=== PATIENT | female | born 1980 | race Caucasian/White ===

== ENCOUNTER 2025-08-03 14:29 | Outpatient (AMB) | payer OTHER, SELFPAY ==
--- NOTE | 2025-08-03 14:34 | A.OFFVIS_ITS ---
Vital Signs 08/03/25 14:43 Height 5 ft Weight 119 lb 0.794 oz BMI 23.2 BP 122/68 Blood Pressure Location Rt brachial Position Sitting Pulse 70 Pulse Source Pulse Oximeter Pulse Oximetry (%) 99 Oxygen Delivery Method Room Air Intake Visit Reasons: Vomiting, abdominal pain, watery diarrhea Intake Note: Patient new consult for Vomiting, abdominal pain, watery diarrhea Patient cc: C.O. intermittent episodes of severe N+V, generalized abd pain over the last 6-8 months. Pt reports that she has been on GLP 1 therapy for over 1 year and had previously been doing well with the Trulicity after starting with Mounjaro. Pt also reports having concerns pertaining to a possible rash/skin irritation in the navel area w/ reported purulent discharge. Discharge also has a foul odor. Filling Machine Set Up Mechanic Required: No Accompanied by: Spouse Allergies metformin Allergy (Intermediate, Verified 07/24/25 14:19) Abdominal Pain niacinamide Allergy (Intermediate, Verified 07/24/25 14:19) rash sucralfate (From Carafate) Allergy (Intermediate, Verified 07/24/25 14:19) Itching gelatin Allergy (Mild, Verified 07/24/25 14:19) Unknown prednisone Allergy (Verified 07/24/25 14:19) Wheezing dasen Allergy (Intermediate, Uncoded 07/24/25 14:19) Dizziness HPI HPI Vomiting, abdominal pain, watery diarrhea: Details: Patient is a 45-year-old female with PMH of []. Referred by PCP for further evaluation of abdominal pain and diarrhea. Patient is accompanied by . Patient presents with persistent, recurrent abdominal pain localized primarily to the epigastric region with radiation to the back, ongoing for years but significantly worsened since starting Trulicity injections in January of this year. Pain is described as severe, sometimes sharp/cramping, and is temporally associated with weekly injections, beginning after administration and lasting several days. The patient rates pain intensity as severe and expresses distress over the inability to achieve relief. Associated gastrointestinal symptoms include intermittent hard stools (?rabbit- like?), irregular bowel movement frequency (not daily, sometimes every few days), occasional urge without evacuation, and rare episodes of diarrhea when using a laxative. Reports occasional blood noted in stool in the past, but unclear if ongoing; denies dark/tarry stool, but had some history of foul- smelling, itchy perianal discharge occurring concurrently with pain. Nausea occurs intermittently; no vomiting. Reports subjective fevers, malaise, and weakness after pain episodes, but no objective temperature measurement. Bowel pattern appears changed/worsened since medication switch from metformin/Manjaro to Trulicity. Currently takes Tylenol for pain (partial relief). Patient is reluctant to trial regular use of prescribed osmotic laxatives (Miralax) due to previous intolerance (diarrhea when used daily), but open to trying every other day dosing if indicated. Previously evaluated in the ED 2?3 months ago for severe abdominal pain, diagnosed with colitis, CT negative for obstruction or small bowel wall thickening. Undergoing evaluation for possible allergic/immune issues (allergen testing reported, C1 inhibitor elevated, but pending specialist follow-up). No history of gallbladder removal. Notable comorbidities include diabetes mellitus managed with GLP-1 agonists. Prior medication changes due to suboptimal glycemic control and side effects. Patient expresses high concern about pain management and impact on daily routine and emotional well-being. Patient denies: vomiting, appetite changes, pyrosis, regurgitation,dysphasia, unintentional wt loss. Social hx: -denies ETOH use -denies recreational drug use -non-smoker - family hx as below -denies personal hx of CA -denies significant cardiopulmonary history -tolerated anesthesia in the past without difficulty. [facility], LAT[facility] Medical History (Updated 08/04/25 @ 09:27 by Patti Busby CNP) Umbilical abnormality Diabetes Constipation Abdominal pain Surgical History History of esophagogastroduodenoscopy History of colonoscopy Family History Paternal Grandmother Heart disease Father Diabetes mellitus Brother Diabetes mellitus Mother Diabetes mellitus Paternal Aunt Diabetes mellitus Social History Household Members: Family Review of Systems Const Reports as per HPI ENT Reports as per HPI Card Reports as per HPI Resp Reports as per HPI GI Reports as per HPI Reports as per HPI Physical Exam Vital Signs: Last Vital Signs Pulse 70 08/03/25 14:43 BP 122/68 08/03/25 14:43 Pulse Ox 99 08/03/25 14:43 Oxygen Delivery Method Room Air 08/03/25 14:43 BMI result Body Mass Index 23.2 Const General: healthy appearing, no acute distress and well developed Nutritional Appearance: average body habitus Orientation/consciousness: patient oriented x3 HEENT Head: Yes normal to inspection, Yes normocephalic and Yes atraumatic Face and sinus: Yes normal facial exam Eyes General: appearance normal, both eyes and all related structures Neck Neck: Yes normal visual inspection Resp Effort & Inspection: normal respiratory effort, able to speak in complete sentences, no tracheal deviation and symmetric chest movement Cardio Jugular venous distension: no JVD GI Other: No evidence of discharge to umbilicus Inspection: Yes normal to inspection, No distended and Yes obesity Palpation (GI): Soft to palpation, not firm, Tenderness to palpation present (GI) in the epigastrum and No hepatosplenomegaly present Auscultation: normal bowel sounds Neuro General: patient oriented x3 Gait exam (Neuro): Normal gait present Psych Appearance: grossly normal Mental Status: mental status grossly normal Speech and movement: Normal speech and movement present Affect: normal affect Attitude: cooperative Thought process: Normal thought process present Thought content: Normal thought content present Insight: Good insight present (Psych) Judgement: Good judgement present (Psych) Assessment & Plan Assessment & Plan (1) Abdominal pain: Code(s): R10.9 - Unspecified abdominal pain Category: Medical Qualifiers: Abdominal location: epigastric Qualified Code(s): R10.13 - Epigastric pain Plan: Prior ED dx, intermittent abdominal pain, history of antibiotics for presumed infection, but no current evidence for active inflammation or infection. DDX: Colitis (infectious, allergic, or inflammatory) VS Gallbladder or pancreatobiliary etiology (less likely, but RUQ/epigastric pain with radiation considered) VS Colorectal neoplasm (less likely; no family history, no weight loss, no ongoing hematochezia) VS IBS VS allergy-mediated GI disturbance Additional Testing: - Abdominal CT A/P?re-evaluation or evidence of other etiology. Medication Management: Pepcid 20 mg b.i.d. Lifestyle Recommendations: As above. Follow-Up: Await imaging and labs; reassess if change in symptoms, especially bleeding or systemic toxicity. (2) Constipation: Code(s): K59.00 - Constipation, unspecified Category: Medical Qualifiers: Constipation type: drug induced constipation Qualified Code(s): K59.03 - Drug induced constipation Plan: Temporal correlation with Trulicity, symptom onset and exacerbation post- injection, known GLP-1 class effects, hard/irregular stools, improvement with intermittent laxative use. Additional Testing: - Abdominal X-ray?rule out significant stool burden/obstruction. - Labs: Repeat CBC/CMP, focus on anemia, inflammation if indicated (after fasting). Medication Management: - Recommend osmotic laxative (Miralax every other day if stool retention confirmed; avoid daily use if prior diarrhea). - Trial of Pepcid (famotidine) for epigastric discomfort, up to BID; consider Bentyl (dicyclomine) for cramping if not responsive. - Continue Tylenol prn for pain. Lifestyle Recommendations: - Increase dietary fiber and fluids as tolerated. - Monitor for red flag symptoms: persistent blood in stool, fevers, weight loss. Follow-Up: - Review X-ray results same day. - Contact with results, reassess after imaging. - Consider earlier GI follow-up if symptoms worsen or red flags emerge. Order (3) Diabetes: Code(s): E11.9 - Type 2 diabetes mellitus without complications Category: Medical Qualifiers: Diabetes mellitus type: type 2 Diabetes mellitus regional coordinator insulin use: without care home use Diabetes mellitus complication status: with hyper glycemia Qualified Code(s): E11.65 - Type 2 diabetes mellitus with hyperglycemia Plan: Medication changes due to side effects; patient still experiencing hyperglycemia. Additional Testing: Routine labs for glycemic control (A1c), fasting labs Per PCP Medication Management: Continue current regimen; refer to or coordinate with PCP/endocrinology re: alternative antihyperglycemic agents if intolerable GI side effects persist. Lifestyle Recommendations: Dietary management per diabetic guidelines. Follow-Up: Per PCP/endocrinology. 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 Additional Testing: None indicated at this time; reassess with GI symptom management. Medication Management: Supportive care (hygiene); consider topical if persists. Lifestyle Recommendations: Keep area clean/dry; avoid irritants. Follow-Up: With GI symptom improvement. Plan Follow-up after results or sooner as needed Time: I spent a total of 45 minutes on the date of encounter which includes: Preparing to see the patient (reviewed previous documentation, test results and medical history) Performing a medically appropriate exam and/or evaluation Ordering medications, tests, and procedures Documenting clinical information in the health record Orders: Orders Comprehensive [place]. Panel Fast 08/03/25 R10.9 - Unspecified abdominal pain CT abdomen pelvis w IV con 08/03/25 R10.9 - Unspecified abdominal pain XR KUB 08/03/25 R10.9 - Unspecified abdominal pain Complete Blood Count Auto Diff Today R10.13 - Epigastric pain Medications: New famotidine Take one tablet twice daily 20 mg PO BID 180 tabs 0RF GERD Coding Level of Care Code New Pt New Pt Level 4 (46756) Patient Type New Diagnoses Epigastric pain R10.13 Abdominal location: epigastric Drug-induced constipation K59.03 Constipation type: drug induced constipation Type 2 diabetes mellitus with hyperglycemia, without long-term current use of insulin E11.65 Diabetes mellitus type: type 2 Diabetes mellitus regional coordinator insulin use: without care home use Diabetes mellitus complication status: with hyperglycemia Umbilical abnormality Q89.9
[2025-08-03 14:43] VITALS: BP 122/68; PULSE 70; O2SAT 99; BMI 23.2
--- OUTSIDE RECORDS SUMMARY | 2025-08-03 17:36 | XMS_ITS | Clinical Summary ---
Author Organization [facility] Address [address] [place] [address] Phone Care Team Providers Care Pouako Kura [place] Maori Name Role Phone Argentina Emerson Primary Care Provider [phone] Allergies Active Allergy Reactions Criticality Noted Date Comments Gelatin 03/17/2025 Niacinamide Rash Low 08/07/2023 Sucralfate Hives,Rash Low 02/16/2017 Medications cholecalciferol (VITAMIN D3) 2,000 unit tablet TAKE 1 TABLET BY MOUTH EVERY DAY *NOT COVERED* 07/01/2023 Active glyBURIDE (DIABETA) 2.5 MG tablet TAKE 1 TABLET BY MOUTH EVERY DAY WITH MEALS FOR 30 DAYS 07/14/2023 Active VITAMIN 27 mg iron- 0.8 mg Take 1 tablet by mouth every morning. 07/06/2023 Active Active Problems No known active problems Immunizations Immunization Administration Dates Next Due Tdap 11/22/2012 Family History Medical History Relation Comments Diabetes mellitus Father 2 Diabetes mellitus Paternal Grandmother 2 Relation Status Comments Father 1 Father 2 Paternal Grandmother 1 Paternal Grandmother 2 Social History Tobacco Use Types Packs/Day Years Used Date Smoking Tobacco: Never Smokeless Tobacco: Never Tobacco Cessation:Counseling Given: Not Answered Education Answer Date Recorded Are you interested in more education? Not on linda e 01/30/2023 Are you concerned about learning? Not on file 01/30/2023 No 01/30/2023 No 01/30/2023 Digital Access Answer Date Recorded No 02/27/2023 No 02/27/2023 Reliable internet access at home? Not on file 02/27/2023 Device with a working camera? Not on file Intimate Partner Violence Answer Date R ecorded Are you denied basic needs s uch as food, clothing, or medical care? No 03/17/2025 In the past 12 months have y ou been in a relationship with a person who hurts, threatens, or tries to control you? No 03/17/2025 Are you denied basic needs s uch as food, clothing, or medical care? No 03/17/2025 In the past 12 months have y ou been in a relationship with a person who hurts, threatens, or tries to control you? No 03/17/2025 Comments Unknown Sex and Gender Information Value Date Recorded Sex Assigned at Female 10/12/2017 9:38 AM EST Legal Sex Female 9:21 PM EDT Gender Identity Female 10/12/2017 9:38 AM EST Sexual Orientation Straight 10/12/2017 9: 38 AM EST Last Filed Vital Signs Vital Sign Reading Time Taken Comments Blood Pressure 114/75 03/17/2025 6:21 PM EDT Pulse 80 03/17/2025 6:21 PM EDT Temperature 36.3 C (97.3 F) 03/17/2025 6:21 PM EDT Respiratory Rate 16 03/17/2025 6:21 PM EDT Oxygen Saturation 99% 03/17/2025 6:21 PM EDT Inhaled Oxygen Concentration - - Weight 62.6 kg (138 lb) 03/17/2025 1:40 PM EDT Height 154.9 cm (5' 1 ) 03/17/2025 1:40 PM EDT Body Mass Index 26.07 03/17/2025 1:40 PM EDT Plan of Treatment Health Maintenance Due Date Last Done Comments DEPRESSION SCREENING 1993 HIV ONE-TIME SCREENING (18-6 5 YEARS) 1999 MAMMOGRAM 2021 PAP SMEAR 02/23/2024 02/22/2021 INFLUENZA VACCINE (#1) 2025 9, 07/27/2018, 11/22/2012 COVID-19 VACCINE (2 6 season) 2025 04/09/2021, 03/13/2021 SCREENING FOR DIABETES 03/17/2028 03/17/2025 Adult Td,Tdap Booster 04/08/2033 04/08/2023 , 11/22/2012 PNEUMOCOCCAL VACCINES (0-49 years) Aged Out 07/27/2018 No longer eligible b ased on patient's age to complete this topic HEPATITIS C SCREENING Completed 11/02/2019 SMOKING STATUS SCREENING (On ce After 26 Yrs) Completed 08/07/2023 HEPATITIS A VACCINES Aged Out No long er eligible based on patient's age to complete this topic HIB VACCINES Aged Out No longer eligi ble based on patient's age to complete this topic MENINGOCOCCAL VACCINES (ACWY) Aged Out No longer eligible based on patient's age to complete this topic MENINGOCOCCAL VACCINES (B) Aged Out N o longer eligible based on patient's age to complete this topic Medical Devices Not on file Procedures Procedure Name Priority Date/Time Associated Diagnosis Comments PAP TEST Routine 02/22/2021 12:00 AM EDT from Last 3 Months or Most Recently Relevant to Health Maintenance Results * Pap Smear (02/22/2021 12:00 AM EDT) 02/22/2021 02/25/2021 8:5 5 AM EDT Narrative SEE NARRATIVE - 03/01/2021 1:12 [place] [address] Lead Generation Marketing Manager: Idalmis Carlisle MD EXPANDING MACHINE OPERATOR Cytology Report FINAL DIAGNOSIS A. PAP SMEAR (SUREPATH) CE: SPECIMEN ADEQUACY: Satisfactory for evaluation; transformation zone present. INTERPRETATION: NEGATIVE FOR INTRAEPITHELIAL LESION OR MALIGNANCY. Electronically Signed Out By: IDALMIS Gaines(ASCP) The Pap test is a screening test primarily for squamous cancers and precursors and has associated false-negative and false-positive results. New technologies such as liquid-based preparations may decrease but will not eliminate all false-negative results. Regular sampling and follow-up of unexplained clinical signs and symptoms are recommended to minimize false negative results. PROCEDURES/ADDENDA HPV Testing (Requested) Ordered Date: 02/25/2021 A. PAP SMEAR (SUREPATH) CE: Human Papilloma Virus Test Negative for high-risk human papillomavirus types 16, 18, 45 and the Other high risk probe set (Includes 31, 33, 35, 39, 51, 52, 56, 58, 59, 66, 68) by [employer] HR-HPV analysis. Clinical correlation is advised. This HPV test was performed at [facility], [address] [place] [address]. This test has been FDA approved for SurePath cervical cytology specimens. The accuracy and precision of this test for all other specimen sources has been verified in the Cytopathology Laboratory of the [facility] and has not been cleared or approved by the U.S. Food and Drug Administration. Clinical correlation is advised. CLINICAL HISTORY Date of Last Menstrual Period: 02-04-2021 Other Clinical Conditions: Screening Pap SPECIMEN SOURCE A: PAP SMEAR (SUREPATH) CE Patient Name: POOL MCFARLAND : 1980 (Age: 40) Sex: F Institution: [facility] Location: [facility] Date of Collection: 02/22/2021 Date of Reported: 03/01/2021 13:12 Results to: Trini Lino Trini Lino PA CYTOLOGY ORDERABLE S Final Result SEE NARRATIVE from Last 3 Months or Most Recently Relevant to Health Maintenance [place] [id number] [place] [id number] Care Teams P[place] K[place] Maori Relationship Specialty Start Date End Date Argentina Emerson PA [address] [place] [id number] PCP - General Physician Provider Service Representative 03/11/23 Additional Source Comments The information contained in this document represents components of the legal health record. It is not the complete legal health record.[facility]
--- OUTSIDE RECORDS SUMMARY | 2025-08-03 17:36 | XMS_ITS | Encounter Summary ---
Author Organization [facility] Address [address] [place] [address] Phone Care Team Providers Care Fire Engineer Name Role Phone Trini Lino Primary Care Prov ider Argentina Emerson Primary Care Provider [phone] Reason for Referral * Outpatient Procedure - Closed Specialty Diagnoses / Procedures Referred By Alphonso milian Referred To Contact Diagnoses Other chest pain Procedures Adult Echo TTE Trini Lino PA Phone: tel: fax: mailto:chelly Referral ID Status Reason Start Date Expiration Date Visits Re quested Visits Authorized [id number] Closed 02/22/2019 03/23/2019 1 1 Encounter Details Date Type Department Care Team (Late st Contact Info) Description 01/27/2019 Transcribe Orders Virtual Department [address] [place] [address] Trini Lino PA [address] [place] [address] sarina Other chest pain (Primary Dx) Social History Tobacco Use Types Packs/Day Years Used Date Smoking Tobacco: Never Smokeless Tobacco: Never Comments Unknown Sex and Gender Information Value Date Recorded Sex Assigned at Female 10/12/2017 9:38 AM EST Legal Sex Female 9:21 PM EDT Gender Identity Female 10/12/2017 9:38 AM EST Sexual Orientation Straight 10/12/2017 9: 38 AM EST documented as of this encounter Plan of Treatment Not on file documented as of this encounter Results * TTE COMPREHENSIVE (03/02/2019 11:07 AM EDT) Body Surface Area 1.6 m2 Height 152 cm Weight 65 kg Systolic BP 112 mmHg Diastolic BP 74 mmHg Left Atrium Dimension Anterior-Posterior 27 15 - 40 mm Aortic Valve Peak Velocity 110.0 cm/s Aortic Valve Peak Gradient 5 mmHg Aortic Sinus Diameter 23 mm Ascending Aorta Diameter 23 mm Interventricular Septum Thickness 6 mm Left Ventricle Internal Diameter End Diastole 43 37 - 52 mm Left Ventricle Internal Diameter End Systole 29 22 - 35 mm Left Ventricular Outflow Tract Diameter 19.0 mm LVOT VTI REST 226 mm Left Ventricular Outflow Tract Velocity 0.8 m/s Left Ventricular Outflow Tract Gradient at Rest 2 mmHg Left Ventricular Posterior Wall Thickness 9 mm Ejection Fraction 60 50 - 75 Percent Mitral Valve Deceleration Time 232 ms Mitral Valve A Wave Speed 54.3 cm/s Mitral Valve E Wave Speed 103.0 cm/s Right Ventricle Basal Diameter 22.7 25 - 41 mm Raw LV EF% 55 % Left Atrial Volume 38 mL Left Atrial Volume Index 23.75 mL/m2 Aortic Valve Sinus Index 1 14 19 - 27 mm Ascending Aorta Diameter 14 mm Aortic Sinus Index 14 mm Ascending Aorta Index 14 mm Anatomical Region Laterality Modality Heart Ultrasound Narrative 03/02/2019 1:58 PM EDT Normal LV size and function EF 60%. Normal diastolic function. Normal valve structure and function with trace mitral regurgitation. Normal study. Left Ventricle The left ventricular cavity size and wall thickness are normal. Left ventricular systolic function is normal. There are no segmental left ventricular wall motion abnormalities noted. The estimated ejection fraction is 60% (Normal 50-75%). The left ventricular ejection fraction was measured by visual estimate. Left ventricular diastolic function appears within normal limits for age. There is no evidence of left ventricular thrombus. Right Ventricle The right ventricular size is normal. No evidence of right ventricular hypertrophy. The right ventricular systolic function is normal. Left Atrium The left atrium is normal in size. The left atrial anterior-posterior dimension measures 27 mm (normal 15-40 mm). The LA volume is 38 mL. The LA volume index is 23.75 mL/m2 (normal indexed value is 16-34 mL/m2). The pulmonary venous flow profiles are normal. Pulmonary vein connections were not well seen. Right Atrium The right atrium is normal in size. Mitral Valve The mitral valve appears normal. The E/A ratio is 1.9. The Med E' Yasmani is 12 cm/s and the Lat E' Yasmani is 17.6. The E/E' AVG is 7.0. There is no evidence of mitral stenosis. There is no significant mitral regurgitation detected by spectral and color Doppler. Tricuspid Valve The tricuspid valve appears normal. Unable to determine pulmonary pressures due to lack of TR velocity profile. There is no evidence of tricuspid stenosis. There is no evidence of significant tricuspid regurgitation by color and spectral Doppler. Aortic Valve The aortic valve appears normal. The aortic valve is tricuspid. There is no evidence of valvular aortic stenosis. The peak aortic valve gradient is 5 mmHg. There is no evidence of aortic regurgitation by color and spectral Doppler. The visualized portions of the thoracic aorta appear normal. Pulmonic Valve The pulmonary valve appears normal. There is no evidence of pulmonic stenosis. There is evidence of trace pulmonary regurgitation by color and spectral Doppler. Pericardium There is no evidence of pericardial effusion. There no evidence of a pleural effusion. Interatrial Septum The interatrial septum appears normal. Interventricular Septum Interventricular septal motion appears normal. General Findings The image quality was good (2). Technique(s) used in the evaluation: Color flow Doppler and Spectral Doppler. The predominant rhythm during the study was sinus. Comparison Findings No prior studies for comparison. us Trini RICE CV ECHO ORDERABLES Final Result documented in this encounter Visit Diagnoses Diagnosis Other chest pain- Primary Other chest pain documented in this encounter Care Teams Fire Engineer Relationship Specialty Start Date End Date Trini Lino PA [address] [place] [address] PCP - General Emergency Medicine 11/05/18 03/10/23 Argentina Emerson PA [address] [place] [phone] PCP - General Physician Building Maintenance Repairer 03/11/23 documented as of this encounter Additional Source Comments The information contained in this document represents components of the legal health record. It is not the complete legal health record.[facility]
--- OUTSIDE RECORDS SUMMARY | 2025-08-03 17:36 | XMS_ITS | Encounter Summary ---
Author Organization [facility] Address [address] [facility] [address] [place] [address] Phone Care Team Providers Care Emergency Department Rn Name Role Phone Isaiah Ochoa MD Primary Care Provider +1- [phone] Trini Lino Primary Care Prov ider Argentina Emerson Primary Care Provider +1 -[phone] Reason for Referral * Outpatient Procedure - Closed Specialty Diagnoses / Procedures Referred By Alphonso milian Referred To Contact Diagnoses Chest pain, unspecified type Procedures Stress Test Exercise Trini Lino PA Phone: tel: fax: mailto:maranda Referral ID Status Reason Start Date Expiration Date Visits Re quested Visits Authorized [id number] Closed 10/27/2018 10/27/2019 1 1 Encounter Details Date Type Department Care Team (Late st Contact Info) Description 10/27/2018 Ancillary Orders Virtual Department [address] [place] [address] Trini Lino PA [address] [place] [address] sarina Chest pain, unspecified type Social History Tobacco Use Types Packs/Day Years [...] documented as of this encounter Results * Stress Test Exercise (11/05/2018 10:41 AM EST) Max BP Systolic 126 mmHg [facility] Max BP Diastolic 60 mmHg [facility] Max HR 181 BPM [facility] Resting HR 71 BPM [facility] Resting BP Systolic 100 mmHg [facility] Resting BP Diastolic 56 mmHg [facility] Peak METS 13.4 METS [facility] Peak HR 181 BPM [facility] Peak BP Systolic 120 mmHg [facility] Peak BP Diastolic 60 mmHg [facility] Anatomical Region Laterality Modality Heart Other 11/05/2018 8:39 AM EST 11/05/2018 10:40 AM EST Narrative 11/05/2018 1:10 PM EST Response to Stress The patient exercised for minutes seconds, achieving 13.4 METS at peak exercise. Baseline blood pressure was 100/56 mmHg, and baseline heart rate was 71 bpm. Peak blood pressure was 120/60 mmHg. The patient achieved a peak heart rate of 181 bpm, which is% of their maximum predicted heart rate. [place] pressure product [place] [address]. Pt exercised for 11:27 min on a NILSA protocol achieving 13.4 METS. TEst terminated due to fatigue. Baseline resting HR was 62. Max heart rate achieved was 181 (98% MPHR). 1. EKG - Baseline EKG showed normal sinus rhythm. No ischemic EKG changes with exercise. In recovery, inferolateral T wave inversions noted. 2. SYMPTOMS - Pt reported chest discomfort at peak exercise that resolved by 2 min into recovery. 3. EXERCISE PHYSIOLOGY - Normal BP response to exercise. Good functional capacity for age. 4. ARRHYTHMIAS - No ectopy. Conclusion - Equivocal stress test. No ischemic EKG changes with exercise, but pt reported chest discomfort with exercise that resolved with rest. Nonspecific EKG changes noted in recovery. Given risk factors and symptoms, would consider repeating test with imaging. Fidelia Barnett DEFECT REPAIRER GLASSWARE with Dr Sosa . us Trini RICE CV STRESS ORDERABL ES Final Result documented in this encounter Visit Diagnoses Diagnosis Chest pain, unspecified type Chest pain, unspecified type documented in this encounter Care Teams Emergency Department Rn Relationship Specialty Start Date End Date Isaiah Ochoa MD 90 [facility] [address] [place] [address] [email or web address] PCP - General Internal Medicine 07/25/17 Trini Lino PA [address] [place] [address] PCP - General Emergency Medicine 11/05/18 03/10/23 Argentina Emerson PA [address] [place] [address] PCP - General Physician Weed Science Research Technician 03/11/23 documented as of this encounter Additional Source Comments The information contained in this document represents components of the legal health record. It is not the complete legal health record.[facility]
--- OUTSIDE RECORDS SUMMARY | 2025-08-03 17:36 | XMS_ITS | Clinical Summary ---
Author Organization [facility] Address [address] [place] [address] Care Team Providers Care Oracle Soa Architect Name Role Phone EdTrini Brownlee Primary Care Provide r Allergies Active Allergy Reactions Criticality Noted Date Comments Sucralfate Hives 11/02/2019 Medications multivitamins (THERAGRAN) Take 5 mL by mouth daily. Active folic acid (FOLVITE) 1 mg tablet Take 1 mg by mouth daily. Active sennosides (SENNA-C ORAL) Take by mouth. Active TURMERIC, BULK, MISC by misc (non-drug; combo route) route. Active vitamin D / placebo capsule - study supplied Take 2,000 Units by mouth daily. Active B-Complex with Vitamin C tablet Take 1 Tab by mouth daily. Active pyridoxine HCl, vitamin B6, (VITAMIN B-6 ORAL) Take by mouth. Active Lactobac no.41/Bifidobact no.7 (PROBIOTIC-10 ORAL) Take by mouth. Active Surgical History Surgery Date Site/Laterality Comments IVF 10/05/2016 - 10/04/2017 in [place] Medical History Medical History Date Comments Type 2 diabetes, diet controlled ([facility]) 05/24 19 6.4% A1c Family History Medical History Relation Comments Diabetes Father Heart Disease Father Diabetes Mother Hypertension Mother Relation Status Comments Father Mother Social History Tobacco Use Types Packs/Day Years Used Date Smoking Tobacco: Never Smokeless Tobacco: Never Alcohol Use Standard Drinks/Week Comments Never 0 (1 standard drink = 0.6 oz pur e alcohol) AUDIT-C Answer Date Recorded Frequency of Alcohol Consumption Never 11/02/2019 Average Number of Drinks Not on file 020 Frequency of Binge Drinking Not on file 10/06 Interpersonal Safety Answer Date Record ed Physically Hurt Never 05/07/2020 Verbally Threaten Not on file 05/07/2020 Comments No Sex and Gender Information Value Date Recorded Sex Assigned at Not on file Legal Sex Female 12:00 EST Gender Identity Female 10/21/2019 12:38 EST Sexual Orientation Not on file Obstetrics History Para Term AB IAB SAB Ectopic Multiple Livin g Live Births 1 1 1 Date Outcome GA Total Labor Labor/2nd/3rd Weight Sex Type Anes PTL Alaina A1 A5 Name Clin 2017 SAB SAB Last Filed Vital Signs Vital Sign Reading Time Taken Comments Blood Pressure 130/82 11/02/2019 1255 EST Pulse - - Temperature - - Respiratory Rate - - Oxygen Saturation - - Inhaled Oxygen Concentration - - Weight 65.3 kg (144 lb) 11/02/2019 1255 EST Height 154.9 cm (5' 1 ) 11/02/2019 1255 EST Body Mass Index 27.21 11/02/2019 1255 EST Plan of Treatment Health Maintenance Due Date Last Done Comments Hepatitis B Vaccine (1 of 3 - 19+ 3-dose series) 03/06 COVID-19 Vaccine ( season) 2025 Hepatitis C Screen Completed 11/02/2019 Procedures Procedure Name Priority Date/Time Associated Diagnosis Comments HEPATITIS C AB W REFLEX TO HCV RNA BY PCR Routine 11/02/2019 16:57 EST Fertility testing from Last 3 Months or Most Recently Relevant to Health Maintenance Results * HEPATITIS C AB W REFLEX TO HCV RNA BY PCR (11/02/2019 16:57 EST) Hep C Antibody Negative Negative 11/03/2019 10:54 EST [facility] Blood VENOUS BLOOD / Unknown Venipuncture / Unknown 11/02/2019 16:57 EST 11/02/2019 17:30 EST us Serge Howe MD CHEMISTRY & BLOOD GAS RUDY HDZ Final Result [facility] [address] [place] [address] from Last 3 Months or Most Recently Relevant to Health Maintenance Insurance [employer]M Care Teams Oracle Soa Architect Relationship Specialty Start Date End Date Trini Lino [address] [place] [id number] PCP - General 11/02/19
--- OUTSIDE RECORDS SUMMARY | 2025-08-03 17:36 | XMS_ITS | Encounter Summary ---
Author Organization [facility] Address [address] [place] [address] Phone Care Team Providers Care Fence Laborer Name Role Phone Argentina Emerson Primary Care Provider +1 -[phone] Encounter Details Date Type Department Care Team (Late st Contact Info) Description 03/17/2025 Procedure Pass [facility], Ct Scan - [address] [address] Social History Tobacco Use Types Packs/Day Years Used Date Smoking Tobacco: Never Smokeless Tobacco: Never Education Answer Date Recorded Are you interested [...] AM EST documented as of this encounter Functional Status * Calculated C-SSRS Risk Score (Lifetime/Recent) Answer Date of Assessment Author No Risk Indicated 03/17/2025 1:41 PM EDT Huyen Soares RN * [place] Suicide Severity Rating Scale (Screener/Recent Self-Report) Question Answer Date of Assessment Author 1. Wish to be (Past 1 Month) No 025 1:41 PM EDT Huyen Soares RN 2. Non-Specific Active Suici major Thoughts (Past 1 Month) No 03/17/2025 1:41 PM EDT Huyen Soares RN 6. Suicidal Behavior (Lifetime) No 5 1:41 PM EDT Huyen Soares RN documented as of this encounter Plan of Treatment Not on file documented as of this encounter Visit Diagnoses Not on filedocumented in this encounter Care Teams Fence Laborer Relationship Specialty Start Date End Date Argentina Emerson PA [address] [place] [phone] PCP - General Physician Prospecting Observer 03/11/23 documented as of this encounter Additional Source Comments The information contained in this document represents components of the legal health record. It is not the complete legal health record.[facility]
== END 2025-08-03 15:35 | disposition home or self-care (01) ==
PROVIDERS: Visit Provider Nurse Practitioner Family
DX: R10.13 Epigastric pain (principal); K59.03 Drug induced constipation; E11.65 Type 2 diabetes mellitus with hyperglycemia; Q89.9 Congenital malformation, unspecified
CPT/HCPCS: 99204

== ENCOUNTER 2025-08-03 14:29 | Outpatient (REF) | payer OTHER, SELFPAY ==
--- NOTE | ~2025-08-03 | XR_ITS ---
EXAMINATION: XR ABDOMEN KUB CLINICAL INDICATION: R10.9 - Unspecified abdominal pain COMPARISON: None available. TECHNIQUE: AP view of the abdomen. FINDINGS: Abundant stool throughout the nondistended right hemicolon. Gas throughout intestine. No air-fluid levels. No gross free air beneath the diaphragm. No metallic or radiopaque foreign body. Patient's large body habitus. XR/XR KUB IMPRESSION: Abundant stool without intestinal obstruction pattern. Electronically signed by: William Yuan MD 08/04/2025 06:59 AM EDT
== END 2025-08-03 14:30 | disposition home or self-care (01) ==
LOC: HO.XRAY 14:29
PROVIDERS: PCP Nurse Practitioner Family; Visit Provider Nurse Practitioner Family
DX: K59.03 Drug induced constipation (principal); E11.65 Type 2 diabetes mellitus with hyperglycemia; Q89.9 Congenital malformation, unspecified; Z79.899 Other long term (current) drug therapy
CPT/HCPCS: 74018

== ENCOUNTER → 2025-08-03 16:07 | Outpatient (BNV) | payer OTHER, SELFPAY | PROVIDERS: PCP Nurse Practitioner Family; Visit Provider Radiology Diagnostic Radiology | DX: R10.9 Unspecified abdominal pain (principal) | CPT/HCPCS: 74018 ==

== ENCOUNTER 2025-08-25 12:29 | Outpatient (REF) | payer OTHER, SELFPAY ==
--- NOTE | ~2025-08-25 | CT_ITS ---
EXAMINATION: CT ABDOMEN AND PELVIS WITH CONTRAST CLINICAL INFORMATION: R10.9 - Unspecified abdominal pain Re-evaluate colitis noted on 03/2024 outside facility. COMPARISON: Radiographs of the abdomen dated on August 03, 2025. Note that no additional prior studies are available for review. This study was ordered as stat , therefore, it is interpreted without waiting for prior exam. TECHNIQUE: Multidetector volumetric images were obtained from the superior aspect of the liver through the pubic symphysis following administration 85 mL of Omnipaque 350 intravenous contrast. Sagittal and coronal reformatted images were obtained on the technologist's workstation. Oral contrast: [address] examination was performed using dose optimization techniques as appropriate, variously including the following: *Automated exposure control *Adjustment of mA and/or kV according to patient size (this includes techniques or standardized protocols for targeted exams where dose is matched to indication/reason for exam; i.e. extremities or head) *Use of iterative reconstruction technique FINDINGS: LOWER CHEST: Lung bases are clear. No pleural effusion. LIVER: Mild hepatomegaly measuring 15.9 cm. No focal lesions. GALLBLADDER AND BILIARY TREE: The gallbladder is unremarkable with no evidence of radiopaque gallstones, gallbladder wall thickening, or obvious pericholecystic inflammatory changes. No biliary ductal dilatation. PANCREAS: Unremarkable. SPLEEN: No splenomegaly. No focal lesions. ADRENAL GLANDS: No nodules. KIDNEYS AND URETERS: The kidneys are normal in size, shape, and attenuation. No hydronephrosis, hydroureter, or calculi seen. No perinephric stranding. GASTROINTESTINAL TRACT: Orally administered contrast has reached the ascending colon. Stomach is partially distended with oral contrast and ingested content. No bowel distention to suggest obstruction. Small bowel loops are unremarkable. Probable appendix in the right lower quadrant has normal caliber. Moderate volume of stool load in the ascending, transverse and descending colons. The sigmoid colon is decompressed. Few scattered colonic diverticula. Small amount of stool load within the rectum. PERITONEUM/RETROPERITONEUM: No free fluid. No free air. ABDOMINAL WALL: No significant hernia is appreciated. LYMPH NODES: No lymphadenopathy. VASCULAR: No abdominal aortic aneurysm. PELVIC VISCERA: Urinary bladder is partially distended, but grossly unremarkable. Uterus and bilateral ovaries are unremarkable. OSSEOUS STRUCTURES: No acute or suspicious osseous abnormality. CT/CT abdomen pelvis w IV con IMPRESSION: 1. No acute findings in the abdomen/pelvis that could explain patient's complaint of abdominal pain. 2. No inflammatory changes to suggest colitis on the current examination. Electronically signed by: Jaimee Quezada MD 08/25/2025 04:21 PM CRISTOPHER
[2025-08-25 12:47] LABS: MANUAL DIFF FLAG NO
[2025-08-25 12:48] LABS: Hematocrit 36.8 % (37.0-47.0); Hemoglobin 12.3 g/dl (12.0-16.0); Imm Gran Abs Auto 0.02 X10*3/uL (0.00-0.03); Imm Gran Pct Auto 0.3 % (0.0-0.4); Lymphocytes Absolute Auto 2.2 X10*3/uL (1.2-4.9); Mean Corpuscular HGB Conc 33.4 g/dl (31.0-35.0); Mean Corpuscular Hemoglobin 29.3 pg (27.0-33.0); Mean Corpuscular Volume 87.6 fL (80.0-98.0); NRBC Abs Auto 0.000 X10*3/uL (0.0-0.012); NRBC Pct Auto 0.0 /100WBC (0.0-0.2); Platelet Count 250 X10*3/uL (160-400); Red Blood Count 4.20 X10*6/uL (4.20-5.50); White Blood Count 6.6 X10*3/uL (4.8-10.8)
--- OUTSIDE RECORDS SUMMARY | 2025-08-25 12:50 | XMS_ITS | Clinical Summary ---
Author Organization [facility] Address [address] [place] [address] Phone Care Team Providers Care Middle School History Teacher Name Role Phone Argetnina Emerson Primary Care Provider +1 -[phone] Allergies Active Allergy Reactions Criticality Noted Date [...] SEE NARRATIVE - 03/01/2021 1:12 [place] [address] Customer Operations Specialist: Idalmis Carlisle MD SOCIAL SERVICE WORKER Cytology Report FINAL DIAGNOSIS A. PAP SMEAR [...] 52, 56, 58, 59, 66, 68) by Pictlarity HR-HPV analysis. Clinical correlation is advised. This HPV test was performed at [facility], [address] [place] [address]. This test has been FDA approved for SurePath cervical cytology specimens. The accuracy and precision of this test for all other specimen sources has been verified in the Cytopathology Laboratory of the [facility] and has not been cleared or approved by the U.S. Food and Drug Administration. Clinical correlation is advised. CLINICAL HISTORY Date of Last Menstrual Period: 02-04-2021 Other Clinical Conditions: Screening Pap SPECIMEN SOURCE A: PAP SMEAR (SUREPATH) CE Patient Name: POOL MCFARLAND : 1980 (Age: 40) Sex: F Institution: [facility] Location: [facility] Date of Collection: 02/22/2021 Date of Reported: 03/01/2021 13:12 Results to: Trini Lino Trini Lino PA CYTOLOGY ORDERABLE S Final Result SEE NARRATIVE from Last 3 Months or Most Recently Relevant to Health Maintenance [place] [id number] [place] [id number] Care Teams Middle School History Teacher Relationship Specialty Start Date End Date Argentina Emerson PA [address] [place] [phone] PCP - General Physician Calibration Technician 03/11/23 Additional Source Comments The information contained in this document represents components of the legal health record. It is not the complete legal health record.[facility]
--- OUTSIDE RECORDS SUMMARY | 2025-08-25 12:50 | XMS_ITS | Encounter Summary ---
Author Organization [facility] Address [address] [facility] [address] [place] [address] Phone Care Team Providers Care Screening Nurse Name Role Phone Isaiah Ochoa MD Primary Care Provider +1- [phone] Trini Lino Primary Care Prov ider Argentina Emerson Primary Care Provider +1 -[phone] Reason for Referral * Outpatient Procedure - Closed Specialty Diagnoses / Procedures Referred By Alphonso milian Referred To Contact Diagnoses Chest pain, unspecified type Procedures Stress Test Exercise Trini Lino PA Phone: tel: fax: mailto:maranda Referral ID Status Reason Start Date Expiration Date Visits Re quested Visits Authorized [id number] Closed 10/27/2018 10/27/2019 1 1 Encounter Details Date Type Department Care Team (Late st Contact Info) Description 10/27/2018 Ancillary Orders Virtual Department [address] [place] [address] Trini Lino PA [address] [place] [address] sarina Chest pain, unspecified type Social History [...] AM EST) Max BP Systolic 126 mmHg [facility] Max BP Diastolic 60 mmHg [facility] Max HR 181 BPM [facility] Resting HR 71 BPM [facility] Resting BP Systolic 100 mmHg [facility] Resting BP Diastolic 56 mmHg [facility] Peak METS 13.4 METS [facility] Peak HR 181 BPM [facility] Peak BP Systolic 120 mmHg [facility] Peak BP Diastolic 60 mmHg [facility] Anatomical Region Laterality Modality Heart Other 11/05/2018 [...] predicted heart rate. Rate pressure product was [address]. Pt exercised for 11:27 min on a [...] consider repeating test with imaging. Fidelia Barnett EGG PASTEURIZER with Dr Sosa . us Trini RICE CV STRESS ORDERABL ES Final Result documented in this encounter Visit Diagnoses Diagnosis Chest pain, unspecified type Chest pain, unspecified type documented in this encounter Care Teams Screening Nurse Relationship Specialty Start Date End Date Isaiah Ochoa MD 90 [facility] [address] [place] [address] [email or web address] PCP - General Internal Medicine 07/25/17 Trini Lino PA [address] [place] [address] PCP - General Emergency Medicine 11/05/18 03/10/23 Argentina Emerson PA [address] [place] [address] PCP - General Physician Store Coordinator 03/11/23 documented as of this encounter Additional Source Comments The information contained in this document represents components of the legal health record. It is not the complete legal health record.[facility]
--- OUTSIDE RECORDS SUMMARY | 2025-08-25 12:50 | XMS_ITS | Clinical Summary ---
Author Organization [facility] Address [address] [place] [address] Care Team Providers Care Advisory Intern Name Role Phone EdTrini Brownlee Primary Care [...] Site/Laterality Comments IVF 10/05/2016 - 10/04/2017 in [place] Medical History Medical History Date Comments Type 2 diabetes, diet controlled ([facility]) 05/24 19 6.4% A1c Family History [...] C Antibody Negative Negative 11/03/2019 10:54 EST [facility] Blood VENOUS BLOOD / Unknown Venipuncture / Unknown 11/02/2019 16:57 EST 11/02/2019 17:30 EST us Serge Howe MD CHEMISTRY & BLOOD GAS RUDY HDZ Final Result [facility] [address] [place] [address] from Last 3 Months or Most Recently Relevant to Health Maintenance Insurance [employer] Care Teams Advisory Intern Relationship Specialty Start Date End Date Trini Lino [address] [place] [id number] PCP - General 11/02/19
--- OUTSIDE RECORDS SUMMARY | 2025-08-25 12:50 | XMS_ITS | Encounter Summary ---
Author Organization [facility] Address [address] [facility] [address] [place] [address] Phone Care Team Providers Care Mining Speculator Name Role Phone Trini Lino Primary Care Prov ider Argentina Emerson Primary Care Provider +1 -[phone] Reason for Referral * Outpatient Procedure - Closed Specialty Diagnoses / Procedures Referred By Alphonso milian Referred To Contact Diagnoses Other chest pain Procedures Adult Echo TTE Trini Lino PA Phone: tel: fax: mailto:chelly Referral ID Status Reason Start Date Expiration Date Visits Re quested Visits Authorized [id number] Closed 02/22/2019 03/23/2019 1 1 Encounter Details Date Type Department Care Team (Late st Contact Info) Description 01/27/2019 Transcribe Orders Virtual Department [address] [place] [address] Trini Lino PA [address] [place] [address] sarina Other chest pain (Primary Dx) Social [...] pain documented in this encounter Care Teams Mining Speculator Relationship Specialty Start Date End Date Trini Lino PA [address] [place] [address] PCP - General Emergency Medicine 11/05/18 03/10/23 Argentina Emerson PA [address] [place] [address] PCP - General Physician [employer] 03/11/23 documented as of this encounter Additional Source Comments The information contained in this document represents components of the legal health record. It is not the complete legal health record.[facility]
--- OUTSIDE RECORDS SUMMARY | 2025-08-25 12:50 | XMS_ITS | Encounter Summary ---
Author Organization [facility] Address [address] [place] [address] Phone Care Team Providers Care Stone Cleaner Name Role Phone Argentina Emerson Primary Care Provider +1 -[phone] Encounter Details Date Type Department Care Team (Late st Contact Info) Description 03/17/2025 Procedure Pass [facility], Ct Scan - [address] [address] Social History Tobacco Use Types Packs/Day Years [...] 1:41 PM EDT Huyen Soares RN * [place] Suicide Severity Rating Scale (Screener/Recent Self-Report) Question [...] on filedocumented in this encounter Care Teams Stone Cleaner Relationship Specialty Start Date End Date Argentina Emerson PA [address] [place] [phone] PCP - General Physician Manufacturing Business Analyst 03/11/23 documented as of this encounter Additional Source Comments The information contained in this document represents components of the legal health record. It is not the complete legal health record.[facility]
[2025-08-25 13:08] LABS: Alanine Aminotransferase 49 U/L (0-31); Albumin Level 4.6 g/dL (3.5-5.0); Alkaline Phosphatase 69 U/L (39-117); Anion Gap 12 (12-20); Aspartate Amino Transferase 27 U/L (5-31); Blood Urea Nitrogen 11 mg/dL (9-16); Calcium 9.5 mg/dL (8.4-10.2); Carbon Dioxide 27 mmol/L (22-29); Chloride 106 mmol/L (96-108); Estimated Glomerular Filt Rate > 60; Potassium 4.6 mmol/L (3.3-5.1); Sodium 140 mmol/L (135-145); Total Protein 7.1 g/dL (6.5-8.0)
[2025-08-25] MEDS: iohexoL 350 MG/ML 100 ML INFUS..BTL 85 ML IV (15:37)
[2025-08-25] MEDS: Barium Sulfate Oral (Mocha) 450 ML ORAL.SUSP 900 ML PO (15:38)
== END 2025-08-25 12:30 | disposition home or self-care (01) ==
LOC: HO.CT 12:29
PROVIDERS: Visit Provider Nurse Practitioner Family
DX: R10.13 Epigastric pain (principal)
CPT/HCPCS: 36415; 74177; 80053; 85025; Q9967

== ENCOUNTER → 2025-08-25 14:30 | Outpatient (BNV) | payer OTHER, SELFPAY | PROVIDERS: Visit Provider Radiology Body Imaging | DX: R10.9 Unspecified abdominal pain (principal) | CPT/HCPCS: 74177 ==

== ENCOUNTER 2025-09-15 12:37 | Outpatient (AMB) | payer OTHER, SELFPAY ==
--- NOTE | 2025-09-15 12:46 | A.OFFVIS_ITS ---
Vital Signs 09/15/25 12:47 Height 5 ft Weight 141 lb BMI 27.5 BP 135/68 Blood Pressure Location Lt brachial Position Sitting Pulse 67 Intake Visit Reasons: CT results colitis Intake Note: Patient follow up for abdominal pain, lab and CT scan/X-Ray results Patient cc abdominal bloating on and off, esophagus burning sensation with chest pain, dark stool, tiredness, her provider stop Trulicity. 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: Yes Accompanied by: Self / Same As Patient Allergies metformin Allergy (Intermediate, Verified 09/15/25 12:45) Abdominal Pain niacinamide Allergy (Intermediate, Verified 09/15/25 12:45) rash sucralfate (From Carafate) Allergy (Intermediate, Verified 09/15/25 12:45) Itching gelatin Allergy (Mild, Verified 09/15/25 12:45) Unknown prednisone Allergy (Verified 09/15/25 12:45) Wheezing dasen Allergy (Intermediate, Uncoded 07/24/25 14:19) Dizziness Medication List - Last Reconciled 09/15/25 by Patti Busby CNP polyethylene glycol 3350 (Miralax) 17 grams PO DAILY PRN HPI HPI CT results colitis: Details: Patient is a 45-year-old female without significant PMH. Follow-up visit regarding abdominal pain and constipation. Her last visit was on August 03 for similar complaints. She is accompanied by her mother. Since her last visit, a KUB was performed which confirmed an abundant amount of stool throughout her colon. A CT scan was also obtained on August 25 due to a history of colitis, which confirmed that the colitis has resolved and revealed no acute findings such as issues with the gallbladder, pancreas, spleen, adrenal glands, or kidneys. The CT scan did confirm a moderate stool load. The patient reports that her abdominal pain and indigestion were possibly related to Trulicity, which she had been taking for weight loss. She reports once one episode of severe pain since the discontinuation of Trulicity. She continues to experience constipation, with bowel movements occurring every 2-3 days. She has previously used lactulose, which she found to be effective but did not like the sweet taste. She denies any blood in her stool but reports her stools have been dark-colored throughout her adult life. 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 Past testing for gluten intolerance was negative. Her labs are reassuring with no signs of anemia, and she reports her thyroid levels have been checked recently and normal. [facility] Medical History (Updated 09/15/25 @ 13:38 by Patti Busby CNP) Bloody stools Colon cancer screening Umbilical abnormality Diabetes Constipation Abdominal pain Surgical History History of esophagogastroduodenoscopy History of colonoscopy Family History Paternal Grandmother Heart disease Father Diabetes mellitus Brother Diabetes mellitus Mother Diabetes mellitus Paternal Aunt Diabetes mellitus Social History Household Members: Family Review of Systems Const Reports as per HPI ENT Reports as per HPI Card Reports as per HPI Resp Reports as per HPI GI Reports as per HPI Reports as per HPI Physical Exam Vital Signs: Last Vital Signs Pulse 67 09/15/25 12:47 BP 135/68 09/15/25 12:47 BMI result Body Mass Index 27.5 Const General: healthy appearing, no acute distress and well developed Nutritional Appearance: average body habitus Orientation/consciousness: patient oriented x3 HEENT Head: Yes normal to inspection, Yes normocephalic and Yes atraumatic Face and sinus: Yes normal facial exam Eyes General: appearance normal, both eyes and all related structures Neck Neck: Yes normal visual inspection Resp Effort & Inspection: normal respiratory effort, able to speak in complete senten barbara, no tracheal deviation and symmetric chest movement Cardio Jugular venous distension: no JVD Neuro General: patient oriented x3 Gait exam (Neuro): Normal gait present Psych Appearance: grossly normal Mental Status: mental status grossly normal Speech and movement: Normal speech and movement present Affect: normal affect Attitude: cooperative Thought process: Normal thought process present Thought content: Normal thought content present Insight: Good insight present (Psych) Judgement: Good judgement present (Psych) Results Reviewed Results Reviewed: Date of Service: 08/25/25 Procedure(s): CT abdomen pelvis w IV con Accession Number(s): [id number] cc: Trang Pérez; Patti Busby CNP~ Report Number: [id number]: Total DLP = 320.00 mGy-cm Reason for Exam: R10.9 - Unspecified abdominal pain ADDENDUM ADDENDUM #1 Addendum created as the prior images from [facility] dated March 17, 2025 were made available for comparison. Previously described diffuse colonic wall thickening, mucosal enhancement and pericolonic fatty stranding, most prominent at ascending and proximal transverse colon, suggestive of infective/inflammatory colitis, has resolved. Electronically signed by: Jaimee Quezada MD 08/28/2025 02:07 PM [facility] Addendum Dictated By: Jaimee Quezada MD Addendum Signed By: <Electronically signed by Jaimee Quezada MD in OV> 08/28/25 1407 Addendum Cosigned By: DD/ TD/TT: 08/25/25 EXAMINATION: CT ABDOMEN AND PELVIS WITH CONTRAST CLINICAL INFORMATION: R10.9 - Unspecified abdominal pain Re-evaluate colitis noted on 03/2024 outside facility. COMPARISON: Radiographs of the abdomen dated on August 03, 2025. Note that no additional prior studies are available for review. This study was ordered as stat , therefore, it is interpreted without waiting for prior exam. TECHNIQUE: Multidetector volumetric images were obtained from the superior aspect of the liver through the pubic symphysis following administration 85 mL of Omnipaque 350 intravenous contrast. Sagittal and coronal reformatted images were obtained on the technologist's workstation. Oral contrast: [address] examination was performed using dose optimization techniques as appropriate, variously including the following: *Automated exposure control *Adjustment of mA and/or kV according to patient size (this includes techniques or standardized protocols for targeted exams where dose is matched to indication/reason for exam; i.e. extremities or head) *Use of iterative reconstruction technique FINDINGS: LOWER CHEST: Lung bases are clear. No pleural effusion. LIVER: Mild hepatomegaly measuring 15.9 cm. No focal lesions. GALLBLADDER AND BILIARY TREE: The gallbladder is unremarkable with no evidence of radiopaque gallstones, gallbladder wall thickening, or obvious pericholecystic inflammatory changes. No biliary ductal dilatation. PANCREAS: Unremarkable. SPLEEN: No splenomegaly. No focal lesions. ADRENAL GLANDS: No nodules. KIDNEYS AND URETERS: The kidneys are normal in size, shape, and attenuation. No hydronephrosis, hydroureter, or calculi seen. No perinephric stranding. GASTROINTESTINAL TRACT: Orally administered contrast has reached the ascending colon. Stomach is partially distended with oral contrast and ingested content. No bowel distention to suggest obstruction. Small bowel loops are unremarkable. Probable appendix in the right lower quadrant has normal caliber. Moderate volume of stool load in the ascending, transverse and descending colons. The sigmoid colon is decompressed. Few scattered colonic diverticula. Small amount of stool load within the rectum. PERITONEUM/RETROPERITONEUM: No free fluid. No free air. ABDOMINAL WALL: No significant hernia is appreciated. LYMPH NODES: No lymphadenopathy. VASCULAR: No abdominal aortic aneurysm. PELVIC VISCERA: Urinary bladder is partially distended, but grossly unremarkable. Uterus and bilateral ovaries are unremarkable. OSSEOUS STRUCTURES: No acute or suspicious osseous abnormality. CT/CT abdomen pelvis w IV con IMPRESSION: 1. No acute findings in the abdomen/pelvis that could explain patient's complaint of abdominal pain. 2. No inflammatory changes to suggest colitis on the current examination. Electronically signed by: Jaimee Quezada MD 08/25/2025 04:21 PM [facility] Date of Service: 08/03/25 Procedure(s): XR KUB Accession Number(s): [id number] cc: Patti Busby CNP~ Reason for Exam: R10.9 - Unspecified abdominal pain EXAMINATION: XR ABDOMEN KUB CLINICAL INDICATION: R10.9 - Unspecified abdominal pain COMPARISON: None available. TECHNIQUE: AP view of the abdomen. FINDINGS: Abundant stool throughout the nondistended right hemicolon. Gas throughout intestine. No air-fluid levels. No gross free air beneath the diaphragm. No metallic or radiopaque foreign body. Patient's large body habitus. XR/XR KUB IMPRESSION: Abundant stool without intestinal obstruction pattern Assessment & Plan Assessment & Plan (1) Colon cancer screening: Code(s): Z12.11 - Encounter for screening for malignant neoplasm of colon Category: Medical Plan: The patient is nearing age 46 and is eligible for an average-risk screening colonoscopy. - An order has been placed for a colonoscopy, which is anticipated to be scheduled in the spring of next year. - A modified bowel prep was prescribed due to a gelatin allergy, consisting of magnesium citrate two nights prior, followed by a MiraLax split-prep with 64 oz of Gatorade (avoiding red, blue, or purple colors) the day before. - Prescriptions for the [id number] prep medications were sent to the pharmacy. - The patient received detailed instructions, including the need for a clear liquid diet, NPO status 4 hours prior, and arranging reliable transportation. (2) Constipation: Code(s): K59.00 - Constipation, unspecified Category: Medical Qualifiers: Constipation type: drug induced constipation Qualified Code(s): K59.03 - Drug induced constipation Plan: The patient's constipation is confirmed by imaging and is the likely cause of her abdominal pain, possibly exacerbated by prior use of Trulicity. Subjective reports of normal thyroid levels, not available for review at time of visit. We will consider repeat thyroid panel as warranted. - She is advised to implement lifestyle changes, including increasing dietary fiber, water intake, and physical exercise. - Recommended daily use of Miralax until she achieves regular daily bowel movements, at which point she can taper as needed. - Advised to avoid medications like Trulicity in the future. (3) Abdominal pain: Code(s): R10.9 - Unspecified abdominal pain Category: Medical Qualifiers: Abdominal location: epigastric Qualified Code(s): R10.13 - Epigastric pain Plan: The patient's abdominal pain is attributed to significant stool burden from chronic constipation, as acute intra-abdominal processes, including resolution of previous colitis have been ruled out by CT scan. - Management will focus on treating the underlying constipation, with further evaluation via a planned colonoscopy. Plan Follow-up after endoscopy or sooner as needed Time: I spent a total of 30 minutes on the date of encounter which includes: Preparing to see the patient (reviewed previous documentation, test results and medical history) Performing a medically appropriate exam and/or evaluation Ordering medications, tests, and procedures Documenting clinical information in the health record Orders: Referrals GI Procedure Notification Z12.11 - Encounter for screening for malignant neoplasm of colon Medications: New polyethylene glycol 3350 (Miralax) per colonoscopy prep instructions 238 grams PO ONCE 238 grams 0RF magnesium citrate per colonoscopy prep instruction. 300 mL PO ONCE 296 mL 0RF Coding Level of Care Code Established Pt Est Pt Level 4 (03736) Patient Type Established Diagnoses Colon cancer screening Z12.11 Drug-induced constipation K59.03 Constipation type: drug induced constipation Epigastric pain R10.13 Abdominal location: epigastric
[2025-09-15 12:47] VITALS: BP 135/68; PULSE 67; BMI 27.5
== END 2025-09-15 13:42 | disposition home or self-care (01) ==
LOC: HO.HGI 12:38
PROVIDERS: PCP Nurse Practitioner Family; Visit Provider Nurse Practitioner Family
DX: Z01.818 Encounter for other preprocedural examination (principal); Z12.11 Encounter for screening for malignant neoplasm of colon; K59.03 Drug induced constipation; R10.13 Epigastric pain
CPT/HCPCS: 99214